=== PATIENT | female | born 1955 | race African-American/Black ===

== ENCOUNTER 2016-10-24 15:49 | Emergency (ER) | payer OTHER, MEDICARE ==
[~2016-10-24] VITALS: Ht 165.1 cm; Wt 104.3 kg
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
[~2016-10-24 15:49] MED LIST: ALDACTAZIDE 50/1 TAB PO; ANTI-INFLAMMATORY; ASPIRIN; ASPIRINEC PO; BACLOFEN20 M1; CELEBREX PO; CYMBALTA PO; DICLOFENAC PO; DIOVAN PO; FERRALET 90 TAB1 TAB; GLUCOPHAGE XR500 MG PO; GLUCOTROL; HYDROCODON-ACE1 EAC9; IMDUR; LEUCOVORIN CALCI5 MG; LIPITOR PO; LISINOPRIL PO; LORCET 10/650 T1 TAB PO; METFORMIN; METFORMIN PO; METHOTREXATE; MORPHINE IR PO; MOTRIN600 MG PO; NITROGLYCERIN0.4 MG; NITROGYLCERIN SUBLINGUAL; NORCO 10/325 TA1 TAB PO; NORVASC10 MG PO; PERCOCET10; PERCOCET10 PO; PHARMACY; PLAVIX PO; PLETAL100 MG; SKELAXIN PO; TOPROL XL; TRIBENZOR 40-11 EAC1; VICODIN PO; VICTOZA0.6 MG/0.1; VITAMIN D 4001 UDTAB PO; WALGREENS PHARMACY; XELJANZ5 MG; ZOCOR
== END 2016-10-24 19:06 | disposition home or self-care (01) ==
LOC: CED 15:49 → CFTX 15:49
DX: S39.012A Strain of muscle, fascia and tendon of lower back, initial encounter (principal); S53.401A Unspecified sprain of right elbow, initial encounter; S43.401A Unspecified sprain of right shoulder joint, initial encounter; I25.2 Old myocardial infarction; E11.9 Type 2 diabetes mellitus without complications; I10 Essential (primary) hypertension; F17.210 Nicotine dependence, cigarettes, uncomplicated; Z91.040 Latex allergy status; Z91.041 Radiographic dye allergy status; V43.52XA Car driver injured in collision with other type car in traffic accident, initial encounter; Y92.488 Other paved roadways as the place of occurrence of the external cause
CPT/HCPCS: 72100; 73030; 73080; 99284